=== PATIENT | male | born 1935 | race Caucasian/White ===

== ENCOUNTER → 2016-09-04 | Outpatient (CLI) | payer MEDICARE, OTHER ==
[~2016-09-04] MED LIST: ASPIR 8181 MG PO; CLARITIN 10MG T10 MG PO; COLACE 100MG C100 MG PO; DIGOX125 MCG PO; ENSURE PLUS237 ML PO; FLOMAX0.4 MG PO; FLOVENT DISKUS50 MCG INH; HEARTBURN RELI150 M1 PO; IMDUR ER TAB 3030 MG PO; LINZESS145 MCG PO; MACROBID 100 M100 MG PO; MIRALAX PACK 171 PKT PO; MULTI-VITAMIN1 EACH PO; NITROGLYCERIN0.4 MG SL; NORVASC 5 MG TAB5 MG PO; OMEPRAZOLE20 MG PO; PRADAXA 75 MG C75 MG PO; PROTONIX 20 MG20 MG PO; SOTALOL AF80 MG PO; TIROSINT25 MCG PO; VITAMIN D 11000 UNIT PO
[2016-09-04 13:29] LABS: BUN/CREATININE RATIO 12 (0-10)
== END ==
LOC: CT 12:29
PROVIDERS: Family Medicine
DX: R10.32 Left lower quadrant pain (principal); R10.811 Right upper quadrant abdominal tenderness; E03.9 Hypothyroidism, unspecified; E78.5 Hyperlipidemia, unspecified; I10 Essential (primary) hypertension; R11.0 Nausea; R14.3 Flatulence; K59.09 Other constipation; Z98.890 Other specified postprocedural states; Z95.828 Presence of other vascular implants and grafts
CPT/HCPCS: 36415; 80053; 80061; 80162; 83690; 84439; 84443; J7050; Q9962

== ENCOUNTER → 2016-09-06 | Outpatient (CLI) | payer MEDICARE, OTHER | LOC: KOH-I 07:55 | DX: R10.811 Right upper quadrant abdominal tenderness (principal); K76.0 Fatty (change of) liver, not elsewhere classified | CPT/HCPCS: 76705 ==

== ENCOUNTER 2016-09-14 23:59 | Observation (INO) | payer MEDICARE, OTHER ==
[~2016-09-14] VITALS: Ht 180.3 cm; Wt 68.0 kg
[2016-09-15] MEDS ORDERED: NORVASC 5 MG TAB5 MG PO (01:15)
[2016-09-15] MEDS ORDERED: COLACE 100MG C100 MG PO (01:17)
[2016-09-15] MEDS ORDERED: ASPIR 8181 MG PO (01:17)
[2016-09-15] MEDS ORDERED: DIGOX125 MCG PO (01:18)
[2016-09-15] MEDS ORDERED: ENSURE PLUS237 ML PO (01:21)
[2016-09-15] MEDS ORDERED: FLOVENT DISKUS50 MCG INH (01:23)
[2016-09-15] MEDS ORDERED: IMDUR ER TAB 3030 MG PO (01:23)
[2016-09-15] MEDS ORDERED: TIROSINT25 MCG PO (01:24)
[2016-09-15] MEDS ORDERED: CLARITIN 10MG T10 MG PO (01:26)
[2016-09-15] MEDS ORDERED: LINZESS145 MCG PO (01:26)
[2016-09-15] MEDS ORDERED: MULTI-VITAMIN1 EACH PO (01:27)
[2016-09-15] MEDS ORDERED: NITROGLYCERIN0.4 MG SL (01:27)
[2016-09-15] MEDS ORDERED: PROTONIX 20 MG20 MG PO (01:29)
[2016-09-15] MEDS ORDERED: PRADAXA 75 MG C75 MG PO (01:30)
[2016-09-15] MEDS ORDERED: MIRALAX PACK 171 PKT PO (01:30)
[2016-09-15] MEDS ORDERED: HEARTBURN RELI150 M1 PO (01:31)
[2016-09-15] MEDS ORDERED: SOTALOL AF80 MG PO (01:32)
[2016-09-15] MEDS ORDERED: FLOMAX0.4 MG PO (01:32)
[2016-09-15] MEDS ORDERED: VITAMIN D 11000 UNIT PO (01:33)
[2016-09-15 16:08] LABS: HEMOGLOBIN 13.4 gm/dl (14.0-17.5); RED BLOOD COUNT 4.41 M/UL (4.20-5.50); WHITE BLOOD COUNT 7.3 K/UL (4.5-11.0)
[2016-09-16 04:16] LABS: HEMOGLOBIN 13.2 gm/dl (14.0-17.5); RED BLOOD COUNT 4.32 M/UL (4.20-5.50); WHITE BLOOD COUNT 6.8 K/UL (4.5-11.0)
[2017-01-27] MEDS ORDERED: OMEPRAZOLE20 MG PO (15:40)
[2017-01-27] MEDS ORDERED: MACROBID 100 M100 MG PO (15:41)
== END 2016-09-16 18:04 | disposition home or self-care (01) ==
LOC: CCU 09-15 01:00
PROVIDERS: ADMIT Family Medicine
DX: I49.5 Sick sinus syndrome (principal); I48.0 Paroxysmal atrial fibrillation; I10 Essential (primary) hypertension; E03.9 Hypothyroidism, unspecified; K21.9 Gastro-esophageal reflux disease without esophagitis; Z95.0 Presence of cardiac pacemaker; Z86.79 Personal history of other diseases of the circulatory system; Z79.82 Long term (current) use of aspirin; Z79.899 Other long term (current) drug therapy; Z88.5 Allergy status to narcotic agent; Z88.1 Allergy status to other antibiotic agents; Z88.8 Allergy status to other drugs, medicaments and biological substances; Z87.891 Personal history of nicotine dependence
CPT/HCPCS: 36415; 71010; 80048; 82550; 82553; 83735; 84439; 84484; 85025; 93005; 96374; G0378; G0379; J2550